=== PATIENT | male | born 1960 | race Two or more races ===

== ENCOUNTER 2021-09-23 09:16 | Emergency (ER) | payer MEDICAID, OTHER ==
[~2021-09-23] VITALS: Ht 160 cm; Wt 142.0 kg
[2021-09-23 09:40] VITALS: BP 179/90
[2021-09-23] MEDS ORDERED: ACETAMINOPHEN 325 MG TAB PO ONE (11:15)
[2021-09-23] MEDS ORDERED: TETANUS-DIPTH-ACEL PERTUSSIS 0.5ML SYR Tdap IM ONE (11:15)
[2021-09-23] MEDS ORDERED: CEPH-509 PO (11:31)
[2021-09-23] MEDS ORDERED: ACET-1080 PO (11:31)
== END 2021-09-23 11:36 | disposition home or self-care (01) ==
LOC: ER 09:16 → EDBD 09:16 → ER 11:36
DX: S01.112A Laceration without foreign body of left eyelid and periocular area, initial encounter (principal); Z86.73 Personal history of transient ischemic attack (TIA), and cerebral infarction without residual deficits; Y04.2XXA Assault by strike against or bumped into by another person, initial encounter; Y93.89 Activity, other specified; Y92.89 Other specified places as the place of occurrence of the external cause; Y99.8 Other external cause status; E11.9 Type 2 diabetes mellitus without complications; I10 Essential (primary) hypertension
CPT/HCPCS: 12011; 70450; 70486; 90471; 90715